=== PATIENT | female | born 1945 | race Caucasian/White ===

== ENCOUNTER 2016-12-26 09:39 | Inpatient (IN) | payer OTHER ==
[~2016-12-26] VITALS: Ht 170.2 cm; Wt 111.0 kg
[~2016-12-26 09:39] MED LIST: ALLEGRA ALLERG180 MG PO; AMBIEN10 MG PO; ASCORBIC ACID500 M3 PO; BIOTIN800 MCG PO; CALCIUM CARBONATE PO; CALCIUM500 M4 PO; CELEBREX200 MG PO; CRANBERRY450 M3 PO; FLEXERIL10 MG PO; LO-DOSE ASPIRIN81 M2 PO; MAXZIDE 37.5 M1 EACH PO; NEURONTIN300 MG PO; NEURONTIN600 MG PO; NOLVADEX20 MG PO; NORCO 5/3251 TABLET PO; OMEGA-3 FLAXS1000 MG PO; PRILOSEC20 MG PO; PROBIOTIC1 EAC6 PO; PROBIOTIC250 MG PO; STOOL SOFTENER240 MG PO; VENTOLIN HFA18 GM IH; VITAMIN B122500 MCG PO; VITAMIN D3; VITAMIN D32000 UNI1 PO; VITAMIN E400 UNIT PO; ZINC50 M3 PO; ZOCOR20 MG PO; ZOCOR40 MG PO; [UNRECOGNIZED DRUG - OTHER]
[2016-12-26 11:46] VITALS: BP 137/79
[2016-12-26 22:08] VITALS: BP 117/67
[2016-12-26 23:32] VITALS: BP 117/62
[2016-12-27 03:48] VITALS: BP 138/78
[2016-12-27 07:34] VITALS: BP 130/61
[2016-12-27 11:00] VITALS: BP 109/58
[2016-12-27 16:13] VITALS: BP 128/60
[2016-12-27 23:46] VITALS: BP 114/58
[2016-12-28 04:00] VITALS: BP 145/75
[2016-12-28 08:14] VITALS: BP 115/59
[2016-12-28 12:19] VITALS: BP 115/58
[2016-12-28 16:37] VITALS: BP 120/56
[2016-12-28 23:33] VITALS: BP 119/57
[2016-12-29 08:11] VITALS: BP 115/60
== END 2016-12-29 11:37 | disposition home or self-care (01) | DRG 460 ==
LOC: 2SOUTH 09:39 → 3EAST 10:53
DX: M43.16 Spondylolisthesis, lumbar region (principal); E66.9 Obesity, unspecified; M54.10 Radiculopathy, site unspecified; Z98.1 Arthrodesis status; Z68.38 Body mass index [BMI] 38.0-38.9, adult
CPT/HCPCS: 72100; 76000; 86900; 86901; 94799; 97530 GP; 99202; C1713; J0330; J0690; J1100; J1170; J1580; J1885; J2250; J2405; J2765; J3010; J3370; J3480